=== PATIENT | male | born 1970 | race Two or more races ===

== ENCOUNTER 2019-02-13 05:50 | Day surgery (SDC) | payer OTHER ==
[~2019-02-13] VITALS: Ht 182.9 cm; Wt 141.5 kg
[2019-02-13] VITALS (11 sets, daily range): BP systolic 85–105; BP diastolic 40–67
[~2019-02-13 05:50] MED LIST: BUPROPION HCL100 MG ORAL; CARVEDILOL3.125 MG ORAL; FUROSEMIDE40 MG ORAL; GLIPIZIDE5 MG ORAL; LISINOPRIL-HCT1 EACH ORAL; SPIRONOLACTONE100 MG ORAL; ZOCOR20 M1 ORAL
[2019-02-13] MEDS ORDERED: fentaNYL 100 mcg/2 mL IV ONE (06:56)
[2019-02-13] MEDS ORDERED: Midazolam 2mg/2ml Inj ONE (06:56)
[2019-02-13] MEDS ORDERED: ceFAZolin sod 2 GM in D5W 110 ML IVPB ONE (07:00)
[2019-02-13] MEDS ORDERED: EPINEPHrine 1mg/1ml Amp ONE (07:21)
[2019-02-13] MEDS ORDERED: Bupivacaine 0.25% Inj 30ml INJ ONE (07:29)
[2019-02-13] MEDS ORDERED: Succinylcholine 20mg/ml 10ml vial ONE (07:30)
[2019-02-13] MEDS ORDERED: LR 1000ml ONE (07:30)
--- NOTE | 2019-02-13 07:34 | Pre-Procedure Note/Attestation ---
Pre-Procedure Note/Attestation Complete Prior to Procedure Planned Procedure: left Indications for Procedure Pre-Operative Diagnosis: left knee meniscus tear Attestation I attest that I discussed the nature of the procedure; its benefits; risks and complications; and alternatives (and the risks and benefits of such alternatives ), prior to the procedure, with the patient (or the patient's legal quality control representative). I attest that, if there was a reasonable possibility of needing a blood transfusion, the patient (or the patient's legal quality control representative) was given the [facility] standardized written summary, pursuant to the [place] Blood Safety Act ([place] Health and Safety Code # 1645, as amended). I attest that I re-evaluated the patient just prior to the surgery and that there has been no change in the patient's H&P, except as documented below: Jose Reynolds MD Feb 13, 2019 07:34
[2019-02-13] MEDS ORDERED: Tylenol #3 tab (300mg/30mg) ORAL PRN (07:45)
[2019-02-13] MEDS ORDERED: fentaNYL 100 mcg/2 mL IV PRN (07:45)
[2019-02-13] MEDS ORDERED: HYDROcodone/Acetamin 5/325 tab ORAL PRN (07:45)
[2019-02-13] MEDS ORDERED: D5 1/2NS 1,000 ML IV SCH (07:45)
[2019-02-13] MEDS ORDERED: Acetaminophen (Non formulary) 100 ML IV ONE (07:45)
[2019-02-13] MEDS ORDERED: Metoclopramide 10mg/2ml Inj IVP PRN (07:45)
[2019-02-13] MEDS ORDERED: HYDROmorphone 1mg/ml Carpuject SUBQ PRN (07:45)
[2019-02-13] MEDS ORDERED: NS Irrig 4000ml IRRIG ONE ×3 (08:05→08:24)
[2019-02-13] MEDS ORDERED: Metoclopramide 10mg/2ml Inj ONE (08:12)
[2019-02-13] MEDS ORDERED: Lidocaine 1% MPF 10mg/ml 5ml ONE (08:12)
[2019-02-13] MEDS ORDERED: ePHEDrine 50mg/ml Inj ONE (08:12)
[2019-02-13] MEDS ORDERED: Phenylephrine 10mg/ml Vial ONE (08:12)
[2019-02-13] MEDS ORDERED: Propofol 200mg/20ml IV ONE ×2 (08:12→08:38)
--- NOTE | 2019-02-13 08:37 | Brief Operative Note ---
Immediate Post Operative Note Operative Note Pre-op Diagnosis: left knee meniscus tear Procedure: left knee arthroscopy, partial lateral meniscectomy, lysis of adhesions Post-op Diagnosis: Left knee lateral meniscus tear, adhesions Surgeon: Jose Reynolds MD Anesthesia: general, local Specimen: none Complications: none Condition: stable Fluids: per anesthesia records Estimated Blood Loss: minimal Drains: none Tourniquet time: 20 Implant(s) used?: No Jose Reynolds MD Feb 13, 2019 08:37
--- NOTE | 2019-02-13 08:53 | Immediate Post-Op Evaluation ---
Immediate Post-Op Evalulation Immediate Post-Op Evalulation Procedure: left knee arthroscopy Date of Evaluation: Feb 13, 2019 Time of Evaluation: 08:52 IV Fluids: 800 Estimated Blood Loss: 5 Blood Pressure Systolic: 84 Blood Pressure Diastolic: 50 Pulse Rate: 77 Respiratory Rate: 14 O2 Sat by Pulse Oximetry: 99 Temperature (Fahrenheit): 97.5 Nausea: No Vomiting: No Complications none Patient Status: awake, reacts, patent Hydration Status: adequate Drug: ancef Given Within 1 Hr of Incision: Yes Time Given: 07:30 Mirtha Ibrahim CRNA Feb 13, 2019 08:53
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
[2019-02-13] MEDS ORDERED: Ketorolac 60mg Inj IM ONE (08:58)
[2019-02-13] MEDS ORDERED: Ketorolac 30mg Inj IV PRN ×3 (09:00→09:45)
[2019-02-13] MEDS ORDERED: Ketorolac 30mg Inj IV SCH (09:15)
[2019-02-13] MEDS ORDERED: Ketorolac 60mg Inj IM PRN (09:30)
--- NOTE | 2019-02-13 13:08 | 48 Hour Post Anesthesia Eval ---
Post Anesthesia Evaluation Procedure: left knee arthroscopy Date of Evaluation: Feb 13, 2019 Time of Evaluation: 13:07 Blood Pressure Systolic: 103 0: 58 Pulse Rate: 57 Respiratory Rate: 14 O2 Sat by Pulse Oximetry: 98 Airway: patent Nausea: No Vomiting: No Hydration Status: adequate Cardiopulmonary Status: stable Mental Status/LOC: patient returned to baseline Follow-up Care/Observations: na Post-Anesthesia Complications: none Follow-up care needed: N/A Mirtha Ibrahim CRNA Feb 13, 2019 13:08
--- NOTE | 2019-02-13 20:15 | Operative Note - Dictated ---
DATE OF OPERATION: 02/13/2019 SITE OF SURGERY: [facility]. PREOPERATIVE DIAGNOSIS: Left knee lateral meniscus tear. POSTOPERATIVE DIAGNOSES: 1. Left knee lateral meniscus tear. 2. Left knee adhesions. PROCEDURES PERFORMED: 1. Left knee arthroscopy and partial lateral meniscectomy. 2. Left knee arthroscopic lysis of adhesions. SURGEON: Jose Reynolds M.D. ANESTHESIA: General and local. FLUIDS: Per anesthesia records. ESTIMATED BLOOD LOSS: Minimal. TOURNIQUET TIME: 20 minutes. COMPLICATIONS: None apparent. CONDITION/DISPOSITION: Stable to PACU. INDICATIONS FOR PROCEDURE: The patient is a 48-year-old male who presented with a complaint of left knee pain. He was found to have the above diagnoses. His pain had been recalcitrant to nonsurgical management and therefore, he was indicated for the above surgical intervention. Intraoperative findings and examination under anesthesia revealed good patellar mobility without any evidence of instability. Range of motion 0 to 140 degrees. Negative Osvaldo and posterior drawer. Stable to varus and valgus stress both at 0 and 30 degrees. 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 The medial compartment had grade 1 chondromalacia. No evidence of medial meniscus tear. ACL and PCL were intact. There was a complex tear involving the posterior horn and body of the lateral meniscus with grade 2 to 3 changes diffusely. No loose bodies were encountered. There were adhesions in his suprapatellar compartment. PROCEDURE IN DETAIL: On 02/13/2019, the patient was met in the preoperative holding area. The left knee was marked with an indelible ink and the consent form was reviewed. We discussed risks of surgery including bleeding, infection, damage to nearby neurovascular structures, continued pain, stiffness, blood clots, stroke, and . He expressed understanding of the above and elected to proceed. The consent form was signed. The patient was then taken to the operating room where he was placed supine on the operating table with all body prominences well padded. There, general anesthesia was induced without apparent complications. An tourniquet was applied to the left upper thigh. A bump was placed under the ipsilateral hip. The left lower extremity was then prepped and draped in the sterile fashion. A surgical timeout was then undertaken confirming preoperative antibiotics. The left knee was then insufflated with 20 mL of 0.25% Marcaine with epinephrine. An Esmarch bandage was utilized to exsanguinate the leg and the tourniquet was inflated. Left knee arthroscopy and partial lateral meniscectomy: Standard inferomedial and inferolateral portals were established and diagnostic arthroscopy was performed with the aforementioned findings appreciated. Following diagnostic arthroscopy, attention was directed towards the lateral compartment. Using a combination of the arthroscopic shaver and meniscal biters, a partial lateral meniscectomy was performed. Approximately, 40% of the meniscal tissue was removed. The meniscus was debrided until a stable transition zone was encountered. A probe was utilized to confirm no evidence of continued instability of the meniscus. We then directed our attention towards the lysis of adhesions. Arthroscopic lysis of adhesions: Adhesions in the suprapatellar compartment were lysed using the arthroscopic shaver. Following this, the tourniquet was let down and hemostasis was maintained. All arthroscopic fluid was suctioned from the joint. The knee was then insufflated with 20 mL of 0.25% Marcaine. Closure: The portal sites were closed with 3-0 nylon in a [id number] fashion. Sterile dressings were then applied. The patient was then awakened and transferred to the PACU in stable condition. All sponge and needle counts were correct at the conclusion of the case. POSTOPERATIVE PLAN: The patient will be weightbearing as tolerated. He would utilize crutches for the first 2 to 3 days until he has regained quadriceps function. He will initiate range of motion exercises without any limitations. Jose Reynolds M.D. DR: BIB JOB#: [id number] CC:
== END 2019-02-13 10:50 | disposition home or self-care (01) ==
LOC: SUR 05:50
DX: S83.282A Other tear of lateral meniscus, current injury, left knee, initial encounter (principal); M23.8X2 Other internal derangements of left knee; X58.XXXA Exposure to other specified factors, initial encounter; Y92.9 Unspecified place or not applicable; I25.2 Old myocardial infarction; I10 Essential (primary) hypertension; G47.33 Obstructive sleep apnea (adult) (pediatric); E11.9 Type 2 diabetes mellitus without complications; E66.9 Obesity, unspecified; Z68.41 Body mass index [BMI] 40.0-44.9, adult
CPT/HCPCS: 29881; 82962; J0690; J2250; J2370; J2405; J2704; J2765; J3010; J3490; 94003; 94150